=== PATIENT | male | born 2000 | race African-American/Black ===

== ENCOUNTER 2021-09-23 11:41 | Emergency (ER) | payer OTHER ==
[~2021-09-23] VITALS: Ht 182.9 cm; Wt 77.1 kg
[2021-09-23 11:49] VITALS: BP 126/68
[2021-09-23] MEDS ORDERED: ONDANSETRON HCL/PF 4 MG/2 ML VIAL ONE (12:16)
[2021-09-23] MEDS ORDERED: LORAZEPAM 1 MG TABLET ONE (12:16)
[2021-09-23] MEDS ORDERED: ONDANSETRON HCL/PF - ER 4 MG/2 ML VIAL IM ONE (12:30)
[2021-09-23] MEDS ORDERED: LORAZEPAM 1 MG TABLET PO ONE (12:30)
[2021-09-23] MEDS ORDERED: IBUP-1957 PO (13:09)
[2021-09-23] MEDS ORDERED: LORA-258 PO (13:09)
--- NOTE | 2021-09-23 13:20 | NUR ---
Patient discharged to home in stable condition. Written and verbal after care instructions given. Patient verbalizes understanding of instruction.
== END 2021-09-23 13:20 | disposition home or self-care (01) ==
LOC: ER 12:11
DX: R07.89 Other chest pain (principal); F41.0 Panic disorder [episodic paroxysmal anxiety]; Z79.1 Long term (current) use of non-steroidal anti-inflammatories (NSAID); Z79.52 Long term (current) use of systemic steroids
CPT/HCPCS: 71045; 93005; 96372; 99283; 99406; J2405